=== PATIENT | female | born 1995 | race Caucasian/White ===

== ENCOUNTER → 2020-11-20 | Outpatient (CLI) | payer BC, MEDICAID | END | disposition home or self-care (01) | LOC: CVU 15:59 → EDBD 16:00 | PROVIDERS: ATTEND Internal Medicine Cardiovascular Disease | DX: R94.31 Abnormal electrocardiogram [ECG] [EKG] (principal); R01.1 Cardiac murmur, unspecified; R07.9 Chest pain, unspecified | CPT/HCPCS: 93306; 93356 ==